=== PATIENT | female | born 2000 | race Caucasian/White ===

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

== ENCOUNTER 2020-03-17 19:50 | Emergency (ER) | payer MEDICAID ==
[~2020-03-17] VITALS: Ht 180.3 cm; Wt 79.5 kg
[~2020-03-17 19:50] MED LIST: NO HOME MEDS
[2020-03-17 20:41] LABS: BASOPHILS % (AUTO) 0.5 % (0-1); EOSINOPHILS # (AUTO) 0.1 X10'3 (0-0.9); HEMATOCRIT 36.9 % (35.0-45.0); HEMOGLOBIN 12.7 g/dl (12.0-16.0); LYMPHOCYTES # (AUTO) 1.6 X10'3 (1.1-4.8); LYMPHOCYTES % (AUTO) 29.3 % (21-51); MEAN CORPUSCULAR HEMOGLOBIN 32.1 PG (27.0-31.0); MEAN CORPUSCULAR HGB CONC 34.3 g/dL (33.0-36.5); MEAN CORPUSCULAR VOLUME 93.4 FL (78-98); MEAN PLATELET VOLUME 8.7 FL (7.4-10.4); MONOCYTES # (AUTO) 0.4 X10'3 (0-0.9); MONOCYTES % (AUTO) 7.3 % (2-12); NEUTROPHILS # (AUTO) 3.5 X10'3 (1.8-7.7); NEUTROPHILS % (AUTO) 61.9 % (42-75); PLATELET COUNT 216 X10'3 (140-440); RED BLOOD COUNT 3.94 X10'6 (4.20-5.60); RED CELL DISTRIBUTION WIDTH 13.1 % (11.5-14.5); WHITE BLOOD COUNT 5.6 X10'3 (4.5-11.0)
[2020-03-17 20:54] LABS: ALANINE AMINOTRANSFERASE 77 U/L (12-78); ALBUMIN 3.6 G/DL (3.4-5.0); ALBUMIN/GLOBULIN RATIO 1.1 (1.1-1.5); ALKALINE PHOSPHATASE 65 IU/L (20-180); ANION GAP 9 (8-16); ASPARTATE AMINO TRANSFERASE 45 U/L (10-37); BILIRUBIN,TOTAL 0.9 MG/DL (0.1-1.0); BLOOD UREA NITROGEN 11 MG/DL (7-18); BUN/CREATININE RATIO 17.2 (6.6-38.0); CHLORIDE 104 MMOL/L (99-107); CREATININE 0.64 MG/DL (0.40-0.90); ETHANOL < 0.010 GM/DL (0.0-0.010); GLUCOSE 92 MG/DL (70-104); POTASSIUM 3.3 MMOL/L (3.5-5.1); SODIUM 138 MMOL/L (135-145); TOTAL CARBON DIOXIDE 24.8 MMOL/L (24-32); eGFR > 90 ML/MIN
[2020-03-17 20:55] LABS: URINE HCG POSITIVE (NEG)
[2020-03-17 21:07] LABS: URINE AMPHETAMINE SCREEN POSITIVE (Neg); URINE BARBITUATE SCREEN NEGATIVE (Neg); URINE BENZODIAZEPINES SCREEN NEGATIVE (Neg); URINE CANNABINOID SCREEN NEGATIVE (Neg); URINE COCAINE SCREEN NEGATIVE (Neg); URINE METHADONE SCREEN NEGATIVE (Neg); URINE OPIATE SCREEN NEGATIVE (Neg); URINE PHENCYCLIDINE SCREEN NEGATIVE (Neg)
--- NOTE | 2020-03-17 22:30 | NUR ---
PT WOUND STITCHED BY DR MERINO. PT GIVEN A SANDWICH. PT IS NOW RESTING COMFORTABLY.
[2020-03-18] MEDS ORDERED: PNV1TABL87 PO (09:36)
[2020-03-18 10:11] VITALS: BP 111/73
== END 2020-03-18 10:13 | disposition home or self-care (01) ==
LOC: ER 19:50
DX: S41.112A Laceration without foreign body of left upper arm, initial encounter (principal); R45.851 Suicidal ideations; I10 Essential (primary) hypertension; J45.909 Unspecified asthma, uncomplicated; F41.9 Anxiety disorder, unspecified; F32.9 Major depressive disorder, single episode, unspecified; F12.90 Cannabis use, unspecified, uncomplicated; F15.90 Other stimulant use, unspecified, uncomplicated; F14.90 Cocaine use, unspecified, uncomplicated; F11.90 Opioid use, unspecified, uncomplicated; Z34.91 Encounter for supervision of normal pregnancy, unspecified, first trimester; Z90.89 Acquired absence of other organs; Z98.890 Other specified postprocedural states; Z72.89 Other problems related to lifestyle; Z88.2 Allergy status to sulfonamides; Z79.899 Other long term (current) drug therapy; W26.0XXA Contact with knife, initial encounter; Y93.89 Activity, other specified; Y92.89 Other specified places as the place of occurrence of the external cause; Y99.8 Other external cause status
CPT/HCPCS: 12001; 36415; 80053; 80305; 80320; 81025; 84702; 85025; 99285

== ENCOUNTER 2021-09-22 04:52 | Emergency (ER) | payer MEDICAID ==
[~2021-09-22] VITALS: Ht 175.3 cm; Wt 113.6 kg
[~2021-09-22 04:52] MED LIST changes: +PNV1TABL87 PO
[2021-09-22] MEDS ORDERED: AMOX500C96 PO (05:53)
[2021-09-22] MEDS ORDERED: amoxicillin 250mg capsule PO ONE (05:55)
--- NOTE | 2021-09-22 06:21 | NUR ---
Report received from COREY Mustafa.
[2021-09-22 08:01] VITALS: BP 122/71
[2021-09-22] MEDS ORDERED: AMOX500C2 PO ×2 (09:29)
[2021-09-22] MEDS ORDERED: AMOX-100 PO (18:17)
[2021-09-22] MEDS ORDERED: PNV1TABL75 PO (18:17)
== END 2021-09-22 08:54 | disposition home or self-care (01) ==
LOC: ER 04:52
DX: R07.89 Other chest pain (principal); Z20.822 Contact with and (suspected) exposure to COVID-19; J18.9 Pneumonia, unspecified organism; F15.90 Other stimulant use, unspecified, uncomplicated; I10 Essential (primary) hypertension; J45.909 Unspecified asthma, uncomplicated; F12.90 Cannabis use, unspecified, uncomplicated; F14.90 Cocaine use, unspecified, uncomplicated; F11.90 Opioid use, unspecified, uncomplicated; Z72.89 Other problems related to lifestyle; Z88.2 Allergy status to sulfonamides; Z79.2 Long term (current) use of antibiotics; Z79.899 Other long term (current) drug therapy
CPT/HCPCS: 71045; 87635; 93005; 99285; C9803

== ENCOUNTER 2021-09-22 15:19 | Emergency (ER) | payer MEDICAID ==
[~2021-09-22] VITALS: Ht 175.3 cm; Wt 115.0 kg
[~2021-09-22 15:19] MED LIST changes: +AMOX500C2 PO; +AMOX500C96 PO
--- NOTE | 2021-09-22 16:12 | NUR ---
Pt brought straight back by [employer]. Pt is on a 5150 for DTS/DTO. Pt stated she was "going to kill a lot of people whom she feels is responsible harming her child." Pt was calm and cooperative on greeting. Pt reports feeling sucidal without a plan. Pt was seen around 0500 this morning and discharged around 1030. Since pt was discharged she reports "smoking clear" (meth.) Pt also states she uses heroin and phetynol. Pt's left AC is red and slightly swollen states "that is wear I shoot up." ESTEPHANIE Gaston. Pt denies A/VH at this time, but reports a history.
[2021-09-22 16:48] LABS: BASOPHILS % (AUTO) 0.3 % (0-1); EOSINOPHILS % (AUTO) 0.3 % (0-6); HEMATOCRIT 40.3 % (35.0-45.0); HEMOGLOBIN 13.4 g/dl (12.0-16.0); LYMPHOCYTES # (AUTO) 1.2 X10'3 (1.1-4.8); LYMPHOCYTES % (AUTO) 13.1 % (21-51); MEAN CORPUSCULAR HEMOGLOBIN 29.8 PG (27.0-31.0); MEAN CORPUSCULAR HGB CONC 33.2 g/dL (33.0-36.5); MEAN CORPUSCULAR VOLUME 89.6 FL (78-98); MEAN PLATELET VOLUME 10.1 FL (7.4-10.4); MONOCYTES # (AUTO) 0.7 X10'3 (0-0.9); NEUTROPHILS # (AUTO) 7.5 X10'3 (1.8-7.7); NEUTROPHILS % (AUTO) 79.3 % (42-75); PLATELET COUNT 222 X10'3 (140-440); WHITE BLOOD COUNT 9.5 X10'3 (4.5-11.0)
[2021-09-22 16:54] LABS: ALANINE AMINOTRANSFERASE 82 U/L (12-78); ALBUMIN 3.7 G/DL (3.4-5.0); ALKALINE PHOSPHATASE 86 IU/L (46-116); ANION GAP 16 (8-16); ASPARTATE AMINO TRANSFERASE 179 U/L (10-37); BILIRUBIN,TOTAL 1.1 MG/DL (0.1-1.0); BLOOD UREA NITROGEN 14 MG/DL (7-18); BUN/CREATININE RATIO 17.3 (6.6-38.0); CHLORIDE 100 MMOL/L (99-107); CREATININE 0.81 MG/DL (0.40-0.90); GLUCOSE 79 MG/DL (70-104); POTASSIUM 3.8 MMOL/L (3.5-5.1); SODIUM 137 MMOL/L (135-145); TOTAL CARBON DIOXIDE 20.7 MMOL/L (24-32); TOTAL PROTEIN 7.5 G/DL (6.4-8.2); eGFR 89 ML/MIN
[2021-09-22 17:01] LABS: ETHANOL < 0.010 GM/DL (0.0-0.010)
[2021-09-22 17:25] LABS: URINE HCG NEGATIVE (NEG)
[2021-09-22 17:28] LABS: CLARITY,URINE SLIGHTLY CLOUDY (Clear); GLUCOSE, URINE NEGATIVE (Neg); KETONES,URINE >=80 mg/dl (Neg); LEUKOCYTE ESTERASE ,URINE NEGATIVE (Neg); NITRITES, URINE NEGATIVE (Neg); OCCULT BLOOD,URINE MODERATE (Neg); PROTEIN,URINE 100 mg/dl (Neg); UROBILINOGEN,URINE 0.2 E.U/dL (0.2-1.0)
[2021-09-22 17:37] LABS: UA COLLECTION TYPE CLN CATCH MIDSTREAM
[2021-09-22 17:38] LABS: COLOR,URINE DARK YELLOW (Yellow)
[2021-09-22 17:40] LABS: URINE AMPHETAMINE SCREEN POSITIVE (Neg); URINE BARBITUATE SCREEN NEGATIVE (Neg); URINE BENZODIAZEPINES SCREEN NEGATIVE (Neg); URINE CANNABINOID SCREEN POSITIVE (Neg); URINE COCAINE SCREEN NEGATIVE (Neg); URINE METHADONE SCREEN NEGATIVE (Neg); URINE OPIATE SCREEN NEGATIVE (Neg); URINE PHENCYCLIDINE SCREEN NEGATIVE (Neg)
[2021-09-22 17:41] LABS: BACTERIA,URINE FEW /HPF (Neg); SQUAMOUS EPITHELIAL CELL,UR MODERATE /LPF (FEW); WBC,URINE 0-4 /HPF (0-4)
[2021-09-22 17:42] LABS: FINE GRANULAR CAST 0-3 /LPF (NEGATIVE); HYALINE CASTS 0-3 /LPF (NEGATIVE); MUCUS STRANDS FEW /LPF (Neg)
--- NOTE | 2021-09-22 17:53 | NUR ---
Patient lying in bed on right side, pt has been calm.
[2021-09-22] MEDS ORDERED: AMOX-100 PO (18:17)
[2021-09-22] MEDS ORDERED: PNV1TABL75 PO (18:17)
--- NOTE | 2021-09-22 18:55 | NUR ---
talked with pt tearful said she was last on meds when pregant in 2017, states doesv not desire to hurt herself or any one else. showed nurse red swollen bruised right arm, said she,I F''' Up and I'm here can I have something for sleep. Talked with Nalini Can and received orders for this pt.
[2021-09-22] MEDS ORDERED: LORazepam 1 MG tablet PO ONE (19:00)
[2021-09-22] MEDS: amox tr/potassium clavulanate 875/125mg TAB PO SCH (19:22)
[2021-09-22] MEDS: OLANZapine 2.5MG tablet PO SCH (19:23)
--- NOTE | 2021-09-22 19:29 | NUR ---
pt twicthing while taking meds pleasant and coperative asked what was wrong did not say during these episodes and asked for a tapon due to being on her period. after confirming she took her pills she began eating remainder of dinner left.
--- NOTE | 2021-09-23 00:07 | NUR ---
noted earlier this evening pt denied feelings of ever wanting to harm herself but looking back in past Er visits noted that she had thoughts of harming herself at age 5 and started to been seen in [facility] at age 11 for suidal idealation.
--- NOTE | 2021-09-23 00:38 | NUR ---
Van tijerina in [facility] - 09/23/21 at 0039 by JUSTICE PATIENT IS SLEEPING QUIETLY ON HER LEFT SIDE. IN VIEW FROM NURSES STATION.
--- NOTE | 2021-09-23 01:55 | NUR ---
repositioned herself and nurse put her head down for comfort. pt remains resting at this time.
--- NOTE | 2021-09-23 02:48 | NUR ---
PATIENT SLEEPS QUIETLY IN A SUPINE POSITION.
--- NOTE | 2021-09-23 07:00 | NUR ---
Patient appears to be sleeping. No restless movements noted, repirations even and unlabored.
[2021-09-23] MEDS: amox tr/potassium clavulanate 875/125mg TAB PO SCH ×2 (08:43→17:58)
[2021-09-23] MEDS: OLANZapine 2.5MG tablet PO SCH (08:43)
--- NOTE | 2021-09-23 10:00 | NUR ---
Pt sleeping comfortably, respirations even and unlabored. Pt denies suicidal and homicidal thoughts at this time. Pt presents fatigued. Pt ate 100% of her breakfast. Will continue to monitor.
--- NOTE | 2021-09-23 12:29 | NUR ---
Met with patient in regards to substance use and to see if patient was interested in treatment options. Patient would like to go to an inpatient rehab. I discussed with patient what options were available to her based on her insurance and she would like to try [facility]. I gave patient an application for that program and my card to call me with any questions.
--- NOTE | 2021-09-23 12:31 | NUR ---
Pt up eating lunch. Pt continues to present fatigued, but cooperative. [facility] is working on inpatient recovery program for patient.
--- NOTE | 2021-09-23 14:44 | NUR ---
Patient is sleeping comfortably, no restless movements. Respirations even and unlabored.
--- NOTE | 2021-09-23 15:16 | NUR ---
Pt ambulated to the bathroom, even steady gait.
--- NOTE | 2021-09-23 16:46 | NUR ---
Pt continues to sleep comfortably, no restless movements. Respirations even and unlabored.
--- NOTE | 2021-09-23 19:34 | NUR ---
PATIENT IS SLEEPING IN A PRONE POSITION IN BED.
--- NOTE | 2021-09-23 20:38 | NUR ---
PATIENT IS SLEEPING QUIETLY IN BED. SHE HAS SELF REPOSITIONED.
--- NOTE | 2021-09-23 21:45 | NUR ---
PATIENT IS SLEEPING QUIETLY. NO DISTRESS.
[2021-09-23] MEDS ORDERED: traZODone 150mg tablet PO ONE (22:30)
[2021-09-23] MEDS ORDERED: traZODone 50mg tablet PO ONE (22:35)
--- NOTE | 2021-09-23 22:48 | NUR ---
Report to nurse Stephie at [facility]. Current 5150 information provided. Stephie will contact her provider for possible admit.
--- NOTE | 2021-09-23 22:50 | NUR ---
PATIENT AWAKENS, AMBULATES TO RESTROOM AND BACK. NO DISTRESS. PATIENT SUPPLIED WITH WATER.
--- NOTE | 2021-09-23 23:37 | NUR ---
PATIENT SLEEPING ON HER RIGH SIDE. NO DISTRESS.
--- NOTE | 2021-09-24 01:12 | NUR ---
PATIENT SLEEPING QUIETLY. IN VIEW FROM NURSES STATION.
--- NOTE | 2021-09-24 02:33 | NUR ---
PATIENT HAS SELF REPOSITIONED IN BED. NO DISTRESS.
--- NOTE | 2021-09-24 02:50 | NUR ---
PATIENT SLEEPS QUIETLY, SUPINE IN BED.
--- NOTE | 2021-09-24 02:51 | NUR ---
PATIENT SLEEPS ON HER LEFT SIDE, NO DISTRESS.
--- NOTE | 2021-09-24 03:53 | NUR ---
PATIENT SLEEPS QUIETLY, SUPINE IN BED.
--- NOTE | 2021-09-24 04:48 | NUR ---
PATIENT SLEEPS QUIETLY ON HER RIGHT SIDE. NO DISTRESS.
--- NOTE | 2021-09-24 05:19 | NUR ---
PATIENT AWOKE, SHE REQUESTED AND WAS GIVEN A TAMPON. PATIENT RETURNED TO BED. NO DISTRESS.
[2021-09-24 06:03] VITALS: BP 121/72
--- NOTE | 2021-09-24 06:40 | NUR ---
Patient sleeping prone. No distress observed. Continue to monitor.
--- NOTE | 2021-09-24 08:15 | NUR ---
Patient eating breakfast. RN examined patient's right heel. Patient has a popped blister which is now a small scab. RN gave patient a bandage for her heel. No distress observed at this time.
[2021-09-24] MEDS: OLANZapine 2.5MG tablet PO SCH (08:58)
[2021-09-24] MEDS: amox tr/potassium clavulanate 875/125mg TAB PO SCH (08:58)
== END 2021-09-24 09:37 ==
LOC: ER 15:19
DX: S40.021A Contusion of right upper arm, initial encounter (principal); R45.850 Homicidal ideations; F22 Delusional disorders; F19.10 Other psychoactive substance abuse, uncomplicated; I10 Essential (primary) hypertension; J45.909 Unspecified asthma, uncomplicated; F41.9 Anxiety disorder, unspecified; F31.9 Bipolar disorder, unspecified; F12.90 Cannabis use, unspecified, uncomplicated; F15.90 Other stimulant use, unspecified, uncomplicated; F11.90 Opioid use, unspecified, uncomplicated; F14.90 Cocaine use, unspecified, uncomplicated; Z72.89 Other problems related to lifestyle; Z88.2 Allergy status to sulfonamides; Z88.1 Allergy status to other antibiotic agents; Z79.2 Long term (current) use of antibiotics; Z79.899 Other long term (current) drug therapy; X83.8XXA Intentional self-harm by other specified means, initial encounter; Y93.89 Activity, other specified; Y92.89 Other specified places as the place of occurrence of the external cause; Y99.8 Other external cause status
CPT/HCPCS: 36415; 80053; 80305; 80320; 81001; 81025; 84443; 85025; 99285

== ENCOUNTER 2023-02-13 13:31 | Emergency (ER) | payer MEDICAID ==
[~2023-02-13] VITALS: Ht 175.3 cm; Wt 100.0 kg
[~2023-02-13 13:31] MED LIST changes: +AMOX-100 PO; -AMOX500C2 PO; -AMOX500C96 PO; -NO HOME MEDS; +PNV1TABL75 PO; -PNV1TABL87 PO
[2023-02-13 14:12] VITALS: BP 112/67
== END 2023-02-13 14:20 | disposition left against medical advice (07) ==
LOC: ER 13:32
DX: R30.9 Painful micturition, unspecified (principal); Z53.21 Procedure and treatment not carried out due to patient leaving prior to being seen by health care provider
CPT/HCPCS: 99281

== ENCOUNTER 2023-05-30 09:14 | Inpatient (IN) | payer MEDICAID ==
[~2023-05-30] VITALS: Ht 175.3 cm; Wt 81.8 kg
[~2023-05-30 09:14] MED LIST changes: +ACET-75 PO; -AMOX-100 PO; +BUPR1FIL20 SL; +ESCI20TA39 PO; +GABA300C PO; -PNV1TABL75 PO; +TRAZ-256 PO; +ZIPR60CA7 PO
[2023-05-30] MEDS ORDERED: buprenorphine/naloxone 8MG-2MG SUBlingual film SL ONE (10:25)
[2023-05-30] MEDS ORDERED: ondansetron 4mg rapidly disintigrating tab PO ONE (10:25)
[2023-05-30] MEDS ORDERED: buprenorphine/naloxone 8MG-2MG SUBlingual film SL SCH (10:25)
--- NOTE | 2023-05-30 10:25 | NUR ---
pt here for rfetanyl withdrawl pt states she has not used fetanyl in 3 days and is trying to stop shde statews nausea vomiting cold sweats feeling weak fever and cough. Pt states she is having suicidal thoughts of wanting to hurt her self with a plan of OD throwing herself off a bridge or slitting her wrist. Pt is homeless
[2023-05-30 11:41] LABS: BASOPHILS # (AUTO) 0.2 X10'3 (0-0.2); BASOPHILS % (AUTO) 1.4 % (0-1); EOSINOPHILS # (AUTO) 0.1 X10'3 (0-0.9); EOSINOPHILS % (AUTO) 0.6 % (0-6); HEMATOCRIT 42.7 % (35.0-45.0); HEMOGLOBIN 14.3 g/dl (12.0-16.0); LYMPHOCYTES # (AUTO) 0.5 X10'3 (1.1-4.8); LYMPHOCYTES % (AUTO) 3.6 % (21-51); MEAN CORPUSCULAR HEMOGLOBIN 29.9 PG (27.0-31.0); MEAN CORPUSCULAR HGB CONC 33.5 g/dL (33.0-36.5); MEAN CORPUSCULAR VOLUME 89.3 FL (78-98); MEAN PLATELET VOLUME 9.8 FL (7.4-10.4); MONOCYTES # (AUTO) 0.8 X10'3 (0-0.9); MONOCYTES % (AUTO) 6.7 % (2-12); NEUTROPHILS # (AUTO) 10.9 X10'3 (1.8-7.7); NEUTROPHILS % (AUTO) 87.7 % (42-75); PLATELET COUNT 191 X10'3 (140-440); RED BLOOD COUNT 4.79 X10'6 (4.20-5.60); RED CELL DISTRIBUTION WIDTH 13.8 % (11.5-14.5); WHITE BLOOD COUNT 12.4 X10'3 (4.5-11.0)
[2023-05-30 11:52] LABS: ALANINE AMINOTRANSFERASE 20 U/L (12-78); ALBUMIN 3.5 G/DL (3.4-5.0); ALBUMIN/GLOBULIN RATIO 0.9 (1.1-1.5); ALKALINE PHOSPHATASE 85 IU/L (46-116); ANION GAP 6 (8-16); ASPARTATE AMINO TRANSFERASE 21 U/L (10-37); BILIRUBIN,TOTAL 1.1 MG/DL (0.1-1.0); BLOOD UREA NITROGEN 4 MG/DL (7-18); BUN/CREATININE RATIO 6.5 (10.0-20.0); CALCIUM 9.5 MG/DL (8.5-10.1); CHLORIDE 98 MMOL/L (99-107); CREATININE 0.62 MG/DL (0.40-0.90); ETHANOL < 10 MG/DL (<10); GLUCOSE 114 MG/DL (70-104); POTASSIUM 3.5 MMOL/L (3.5-5.1); SODIUM 132 MMOL/L (135-145); TOTAL CARBON DIOXIDE 28.4 MMOL/L (24-32); TOTAL PROTEIN 7.6 G/DL (6.4-8.2); eCRCL 147 ML/MIN; eGFR > 90 ML/MIN
[2023-05-30 12:16] LABS: URINE HCG NEGATIVE (NEG)
[2023-05-30 12:25] LABS: URINE AMPHETAMINE SCREEN POSITIVE (Neg); URINE BARBITUATE SCREEN NEGATIVE (Neg); URINE BENZODIAZEPINES SCREEN NEGATIVE (Neg); URINE CANNABINOID SCREEN NEGATIVE (Neg); URINE COCAINE SCREEN NEGATIVE (Neg); URINE METHADONE SCREEN NEGATIVE (Neg); URINE OPIATE SCREEN NEGATIVE (Neg); URINE PHENCYCLIDINE SCREEN NEGATIVE (Neg)
--- NOTE | 2023-05-30 12:32 | NUR ---
Per DANIELITO Rosario Report. Patient wanted to be admitted to the hospital for Fentanyl withdrawal. When she was told they don't admit patients for Fentanyl withdrawal patient stated she was suicidal. Patient laying in bed 23 with her blanket. No distress observed. Continue to monitor.
[2023-05-30] MEDS: buprenorphine/naloxone 8MG-2MG SUBlingual film SL SCH ×2 (13:00→20:39)
--- NOTE | 2023-05-30 13:03 | NUR ---
Patient eating lunch. No distress observed. Continue to monitor.
[2023-05-30 13:19] LABS: BILIRUBIN,URINE NEGATIVE (Neg); CLARITY,URINE CLOUDY (Clear); COLOR,URINE YELLOW (Yellow); GLUCOSE, URINE NEGATIVE (Neg); KETONES,URINE NEGATIVE (Neg); LEUKOCYTE ESTERASE ,URINE NEGATIVE (Neg); NITRITES, URINE NEGATIVE (Neg); OCCULT BLOOD,URINE TRACE-INTACT (Neg); PROTEIN,URINE 30 mg/dl (Neg); UROBILINOGEN,URINE 0.2 E.U/dL (0.2-1.0)
[2023-05-30 13:23] LABS: UA COLLECTION TYPE VOIDED
[2023-05-30 13:24] LABS: SQUAMOUS EPITHELIAL CELL,UR MANY /LPF (FEW); TRANSITIONAL EPI CELLS,URINE MODERATE /HPF
[2023-05-30 13:25] LABS: BACTERIA,URINE 1+ /HPF (Neg); RBC,URINE 0-2 /HPF (0-2); WBC,URINE 0-4 /HPF (0-4)
--- NOTE | 2023-05-30 13:45 | NUR ---
[facility] PACKET FAXED.
--- NOTE | 2023-05-30 14:50 | NUR ---
Patient asked RN to remove her tray. No distress observed. Patient laid back down to sleep. No distress observed. Continue to monitor.
--- NOTE | 2023-05-30 14:51 | NUR ---
RN Holding 1300 Suboxone because she had her first one just before 1100. She did not need an additional one 2 hours later. Patient appears to be comfortable at this time. Continue to monitor.
--- NOTE | 2023-05-30 16:22 | NUR ---
Patient sleeping. No distress observed. Continue to monitor.
--- NOTE | 2023-05-30 17:45 | NUR ---
Patient eating dinner. No distress observed. Continue to monitor.
[2023-05-30] MEDS ORDERED: DOCU-148 PO (18:51)
--- NOTE | 2023-05-30 18:59 | NUR ---
Client to be admitted to [facility] ([facility]) for SI per Dr Lebron. Give PM Buprenorphine prior to transfer.
--- NOTE | 2023-05-30 19:31 | NUR ---
Patient sleeping on her left side. No distress observed. Continue to monitor.
[2023-05-30] MEDS ORDERED: ibuprofen 200mg tablet PO SCH (20:00)
--- NOTE | 2023-05-30 20:43 | NUR ---
RN awoke patient and gave patient her Suboxone. Patient requested something for nausea. Patient calm and in no distress. Continue to monitor.
[2023-05-30] MEDS: ondansetron 4mg rapidly disintigrating tab PO PRN (20:51)
[2023-05-30] MEDS ORDERED: acetaminophen 325mg tablet PO PRN ×2 (21:00→22:10)
--- NOTE | 2023-05-30 21:20 | NUR ---
RN awoke patient and given pain medication for her back. No distress noted. Continue to monitor.
[2023-05-30] MEDS ORDERED: loperamide 2mg capsule PO PRN (22:10)
[2023-05-30] MEDS ORDERED: mag hydrox/Alum hydrox/simeth 30ml oral suspension PO PRN (22:10)
[2023-05-30 22:30] VITALS: BP 132/82; PULSE 86; RESP 18; TEMP 97.9; O2SAT 96
[2023-05-30 23:32] VITALS: RESP 18; O2SAT 96
--- NOTE | 2023-05-31 01:35 | NUR ---
[facility] ADMIT NOTE: LEGAL HOLD: 5150 for DTS PROBLEM: Client presented to ED for Fentanyl detox. 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 While in the ED client stated she wanted to end her life by jumping off a bridge. History of Bipolar DO and depression. INTERVENTIONS: 1:1 assessments. Admin meds. Q 15 min checks for safety. RESPONSE: Client arrived on the unit at 22:14 accompanied by and Patrick Lee. She was cooperative with admission. Client had received Buprenorphine in the ED and reported feeling "drowsy". She fell asleep after admission. COW's assessment was done. Affect and mood are depressed.
[2023-05-31 07:00] VITALS: RESP 18; O2SAT 97
[2023-05-31 07:07] LABS: HEMOGLOBIN A1C 4.9 % (4.5-6.2)
[2023-05-31 07:18] LABS: CHOL/HDL RATIO 2.1 (0.00-4.99); CHOLESTEROL 150 MG/DL (0-200); HDL CHOLESTEROL 73 MG/DL (35-60); LDL CHOLESTEROL 59 MG/DL (50-100); THYROID STIMULATING HORMONE 1.28 ulU/ml (0.34-4.50); TRIGLYCERIDES 36 MG/DL (20-135)
[2023-05-31 08:00] VITALS: BP 96/53; PULSE 90; RESP 18; TEMP 99; O2SAT 97
[2023-05-31] MEDS: nicotine 21mg patch - 24 hr TD SCH (08:00)
[2023-05-31] MEDS: docusate sod 100mg capsule PO SCH (08:12)
[2023-05-31] MEDS: gabapentin 300mg capsule PO SCH ×3 (08:13→20:44)
[2023-05-31] MEDS: buprenorphine/naloxone 8MG-2MG SUBlingual film SL SCH ×3 (08:13→20:44)
[2023-05-31] MEDS: pantoprazole 40mg Tablet.DR PO SCH (08:13)
[2023-05-31] MEDS: NICOTINE POLACRILEX 2 MG LOZENGE BC PRN (17:46)
--- NOTE | 2023-05-31 17:52 | NUR ---
Nursing Note: Kay LEGAL HOLD: 5150 for DTS PROBLEM: Client presented to ED for Fentanyl detox. 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 While in the ED client stated she wanted to end her life by jumping off a bridge. History of Bipolar DO and depression. INTERVENTIONS: Maintained a safe and structured environment, ensured contract for safety, administered meds as prescribed, provided clear and simple instructions, attempted to orient to reality, and maintained Q 15min safety checks. RESPONSE: Received Pt in bed sleeping w/o distress at the beginning of this shift. Pt woke and asked for something sweet, and for meds to help with body pain. Pt was responded well to meeting her basic needs and she took AM meds w/o issue and with good effect. She was cooperative with vitals and was up to community room for breakfast and lunch and ate well along with snacks. Pt slept/ rested most of the day and has become more clear in her speech and grateful toward care from this RN. Pt asked for a nicotine lozenge before dinner, as she refused her Nicotine Patch this AM. Pt has scored low on COWS throughout the day. Plan: Pt. requires a safe and structured environment for further stabilization and continued medication management and adjustment r/t SI and danger to self, and opiate withdrawal.
[2023-05-31 19:00] VITALS: RESP 16; O2SAT 94
[2023-05-31 20:00] VITALS: BP 103/64; PULSE 96; RESP 16; TEMP 97.3; O2SAT 94
[2023-05-31] MEDS: ziprasidone 20mg capsule PO SCH (20:43)
[2023-05-31] MEDS: traZODone 50mg tablet PO SCH (20:43)
[2023-05-31] MEDS: ESCITALOPRAM OXALATE 5 MG TABLET PO SCH (20:44)
--- NOTE | 2023-06-01 01:46 | NUR ---
Nursing Note: Kay PROBLEM: Client presented to ED for Fentanyl detox. 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 While in the ED client stated she wanted to end her life by jumping off a bridge. History of Bipolar DO and depression. INTERVENTIONS: Maintained a safe and structured environment, ensured contract for safety, administered meds as prescribed, provided clear and simple instructions, attempted to orient to reality, and maintained Q 15min safety checks. RESPONSE: Received Pt in community room after eating dinner well. Pt returned to her room and was cooperative with vitals and then took a shower and participated in snack time. She asks for food with frequency. Pt speaking clearly and able to have short conversations and appears more comfortable and less tired. Pt described interactions on streets with criminals and people wanting to take advantage of her and her mother. She watched TV for a short time and laid down in bed. She took HS meds after explanations and fell asleep. Pt woke about midnight but was able to fall back asleep. Plan: Pt. requires a safe and structured environment for further stabilization and continued medication management and adjustment r/t SI and danger to self, and opiate withdrawal.
[2023-06-01 07:55] VITALS: RESP 16; O2SAT 100
[2023-06-01 08:00] VITALS: BP 96/44; PULSE 76; RESP 16; TEMP 97.8; O2SAT 100
[2023-06-01] MEDS: nicotine 21mg patch - 24 hr TD SCH (08:00)
[2023-06-01] MEDS: pantoprazole 40mg Tablet.DR PO SCH (08:05)
[2023-06-01] MEDS: docusate sod 100mg capsule PO SCH (08:05)
[2023-06-01] MEDS: buprenorphine/naloxone 8MG-2MG SUBlingual film SL SCH ×3 (08:05→20:19)
[2023-06-01] MEDS: gabapentin 300mg capsule PO SCH ×3 (08:05→20:19)
[2023-06-01] MEDS: NICOTINE POLACRILEX 2 MG LOZENGE BC PRN (09:01)
[2023-06-01 10:57] LABS: HBSAG SCREEN Negative (Negative); HEP B CORE AB, IGM Negative (Negative); HEP B CORE AB, TOT Negative (Negative)
--- NOTE | 2023-06-01 15:35 | NUR ---
Nursing Progress Note: PROBLEM: Client presented to ED for Fentanyl detox. 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 While in the ED client stated she wanted to end her life by jumping off a bridge. History of Bipolar DO and depression. INTERVENTIONS: Maintained a safe and structured environment, ensured contract for safety, administered meds as prescribed, provided clear and simple instructions, attempted to orient to reality, and maintained Q 15min safety checks. RESPONSE: Upon arrival to shift noted patient sleeping. Noted to be wearing green hospital scrubs and poorly groomed. Unkempt in appearance. Up for breakfast, poor appetite due to nausea and dizziness. COWS assessment performed q6h and scoring mild 8 & 7 today. VSS noted 99.2 temporal, 124/69, 105, 16 RR, 94% with reports Nausea, difficulty urinating including emptying bladder, dysuria, and nocturia. Currently on her menses. Reports feeling of pain all over. Compliant with AM meds including taking Suboxone. Paresh made aware and after discussing it with Dr. Lebron report just to continue PRN Zofran for Nausea since shes already at her max for Suboxone. PRN Nicotine lozenge & Zofran given. Later in morning reports feeling better. Will continue to monitor. Denies SI, HI, AH or VH. Got up a few times today to use the phone and up for meals. She socializes some for meals then back to isolating in room. Will continue to monitor. Plan: Pt. requires a safe and structured environment for further stabilization and continued medication management and adjustment r/t SI and danger to self, and opiate withdrawal.
[2023-06-01 19:00] VITALS: RESP 16; O2SAT 97
[2023-06-01] MEDS: acetaminophen 325mg tablet PO PRN (19:55)
[2023-06-01] MEDS: ziprasidone 20mg capsule PO SCH (20:19)
[2023-06-01] MEDS: ESCITALOPRAM OXALATE 5 MG TABLET PO SCH (20:20)
[2023-06-01] MEDS: traZODone 50mg tablet PO SCH (20:20)
[2023-06-01 20:43] VITALS: BP 106/66; PULSE 92; RESP 16; TEMP 98.3; O2SAT 97
--- NOTE | 2023-06-02 04:48 | NUR ---
Nursing Progress Note: Problem: Client presented to ED for Fentanyl detox. 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 While in the ED client stated she wanted to end her life by jumping off a bridge. History of Bipolar DO and depression. Interventions: Maintained a safe and structured environment, ensured contract for safety, administered meds as prescribed, provided clear and simple instructions, attempted to orient to reality, and maintained Q 15min safety checks. Response: Received pt. in the hallway. I need a smoothie, my stomach is bothering me and I didnt have dinner. Pt was given a yogurt. Pt declined Zofran for upset stomach. Pt is on her menses and asked for supplies. Pts COWS score was 6. Pt was given Tylenol 650mg for generalized pain. Pt denies SI/HI/AVH. Pt is compliant with all medications. Pt was complaining that her anxiety was getting worse and asked for Klonopin, then say no its addicting. Rehabilitation Engineer encouraged pt. to let her HS medications work and then commercial underwriter will reassess. Rehabilitation Engineer did not have to give anything for her anxiety. Pt sitting in day room watching a movie with peers but isnt observed to be socializing. 0220 COWS scores 4. Monitor for withdrawal symptoms and safety. Plan: Pt. requires a safe and structured environment for further stabilization and continued medication management and adjustment r/t SI and danger to self, and opiate withdrawal.
[2023-06-02 07:00] VITALS: RESP 12; O2SAT 97
[2023-06-02] MEDS: ondansetron 4mg rapidly disintigrating tab PO PRN (07:53)
[2023-06-02 08:00] VITALS: BP 114/65; PULSE 94; RESP 12; TEMP 98.9; O2SAT 97
[2023-06-02] MEDS: nicotine 21mg patch - 24 hr TD SCH (08:00)
[2023-06-02] MEDS: pantoprazole 40mg Tablet.DR PO SCH (08:24)
[2023-06-02] MEDS: gabapentin 300mg capsule PO SCH ×3 (08:24→20:19)
[2023-06-02] MEDS: buprenorphine/naloxone 8MG-2MG SUBlingual film SL SCH ×3 (08:24→20:55)
[2023-06-02] MEDS: docusate sod 100mg capsule PO SCH (08:24)
[2023-06-02] MEDS: acetaminophen 325mg tablet PO PRN ×2 (08:25→19:55)
--- NOTE | 2023-06-02 17:47 | NUR ---
Nursing Note: Kay PROBLEM: Client presented to ED for Fentanyl detox. 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 While in the ED client stated she wanted to end her life by jumping off a bridge. History of Bipolar DO and depression. INTERVENTIONS: Maintained a safe and structured environment, ensured contract for safety, administered meds as prescribed, provided clear and simple instructions, attempted to orient to reality, and maintained Q 15min safety checks. RESPONSE: Received Pt in bed sleeping w/o distress at the beginning of this shift. Pt woke for vitals and was cooperative. Pt took AM meds w/o issue and was excited about her mother visiting today. Pt c/o nausea and was given Zofran PRN with good effect. Pt also c/o davis and was given Tylenol PRN with good effect. Pts mother did not visit and she was disappointed, yet she made several phone calls that sounded positive and encouraging to her. Picture taken of right hand infected area and Dr Curran notified. He did not want a wound consult but would order an antibiotic. Pt refused her afternoon Suboxone, stating she felt sloshy, and wanted to take the night dose and skip afternoon. She scored a 4 and 3 respectfully on COWS assessments today. Plan: Pt. requires a safe and structured environment for further stabilization and continued medication management and adjustment r/t SI and danger to self, and opiate withdrawal.
[2023-06-02 19:00] VITALS: RESP 16; O2SAT 98
[2023-06-02 20:00] VITALS: BP 114/74; PULSE 91; RESP 16; TEMP 98.6; O2SAT 98
[2023-06-02] MEDS: prazosin 1mg capsule PO SCH (20:19)
[2023-06-02] MEDS: traZODone 50mg tablet PO SCH (20:20)
[2023-06-02] MEDS: ESCITALOPRAM OXALATE 5 MG TABLET PO SCH (20:20)
[2023-06-02] MEDS: magnesium hydroxide 30ml (MOM) UD suspension PO PRN (20:29)
[2023-06-02] MEDS ORDERED: prazosin 1mg capsule PO ONE (22:40)
[2023-06-02] MEDS ORDERED: traZODone 50mg tablet PO ONE (22:40)
[2023-06-03] MEDS ORDERED: OLANZapine 2.5MG tablet PO ONE (00:20)
[2023-06-03] MEDS ORDERED: traZODone 50mg tablet PO ONE (00:20)
--- NOTE | 2023-06-03 05:12 | NUR ---
Nursing Progress Note: Problem: Client presented to ED for Fentanyl detox. 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 While in the ED client stated she wanted to end her life by jumping off a bridge. History of Bipolar DO and depression. Interventions: Maintained a safe and structured environment, ensured contract for safety, administered meds as prescribed, provided clear and simple instructions, attempted to orient to reality, and maintained Q 15min safety checks. Response: Received Pt in her room. Pt is asking to shower, change of clothes given. Personal clothes washed. Pts c/o stomach pain and was given Tylenol 650mg for pain level of 5/10. Pt stated she hasnt had a BM since admission. MOM 30ml given. Pt would like to start on Miralax tomorrow. Pt is compliant with HS medications except refused her Suboxone dose. Pt told telegraphic typewriter mechanic it was messing with her. Pt denies SI/HI/AH/VH. 2000 COWS done and pt scored 5. Pt woke up around 2230, I had a bad nightmare, there were people all screaming my name and asking for help. I couldnt help them because I didnt have my phone. Dr. Stephenson was notified and ordered Prazosin 1mg with Trazodone 100mg. Pt went back to sleep. Around 0010 pt woke again from the same nightmare. Zyprexa 10mg along with another 100mg of Trazodone was ordered. 0200 COWS not performed due to pt being asleep after receiving multiple PRNs for sleep and nightmares. Will continue to monitor for safety. Plan: Pt. requires a safe and structured environment for further stabilization and continued medication management and adjustment r/t SI and danger to self, and opiate withdrawal.
[2023-06-03 07:00] VITALS: RESP 16; O2SAT 98
[2023-06-03 08:00] VITALS: BP 97/56; PULSE 66; RESP 16; TEMP 97.7; O2SAT 98
[2023-06-03] MEDS: nicotine 21mg patch - 24 hr TD SCH (08:00)
[2023-06-03] MEDS: gabapentin 300mg capsule PO SCH ×3 (08:05→20:32)
[2023-06-03] MEDS: docusate sod 100mg capsule PO SCH (08:05)
[2023-06-03] MEDS: pantoprazole 40mg Tablet.DR PO SCH (08:05)
[2023-06-03] MEDS: buprenorphine/naloxone 8MG-2MG SUBlingual film SL SCH ×4 (08:05→21:00)
--- NOTE | 2023-06-03 08:59 | NUR ---
Initial: Pt admit DX meth/fentanyl abuse, MDD, SI, and PTSD per EMR. PO ~76% avg regular diet meeting estimated needs. LBM 05/31 receiving routine colace and PRN MoM 06/02 per EMR. No nutrition interventions at this time. Will continue to follow. Rec: 1. continue regular diet 2. bowel care per rx 3. weekly wt Addendum: 06/03/23 at [address] Amended: Links added.
[2023-06-03 11:12] LABS: BASOPHILS # (AUTO) 0.1 X10'3 (0-0.2); BASOPHILS % (AUTO) 1.2 % (0-1); EOSINOPHILS # (AUTO) 0.2 X10'3 (0-0.9); EOSINOPHILS % (AUTO) 3.6 % (0-6); HEMATOCRIT 33.5 % (35.0-45.0); HEMOGLOBIN 11.1 g/dl (12.0-16.0); LYMPHOCYTES # (AUTO) 1.3 X10'3 (1.1-4.8); LYMPHOCYTES % (AUTO) 22.9 % (21-51); MEAN CORPUSCULAR HEMOGLOBIN 30.3 PG (27.0-31.0); MEAN CORPUSCULAR HGB CONC 33.2 g/dL (33.0-36.5); MEAN CORPUSCULAR VOLUME 91.1 FL (78-98); MEAN PLATELET VOLUME 9.6 FL (7.4-10.4); MONOCYTES # (AUTO) 0.5 X10'3 (0-0.9); MONOCYTES % (AUTO) 8.7 % (2-12); NEUTROPHILS # (AUTO) 3.7 X10'3 (1.8-7.7); NEUTROPHILS % (AUTO) 63.6 % (42-75); PLATELET COUNT 224 X10'3 (140-440); RED BLOOD COUNT 3.68 X10'6 (4.20-5.60); RED CELL DISTRIBUTION WIDTH 13.7 % (11.5-14.5); WHITE BLOOD COUNT 5.9 X10'3 (4.5-11.0)
[2023-06-03 11:21] LABS: ALBUMIN 2.3 G/DL (3.4-5.0); ANION GAP 2 (8-16); BLOOD UREA NITROGEN 7 MG/DL (7-18); BUN/CREATININE RATIO 12.5 (10.0-20.0); CALCIUM 9.1 MG/DL (8.5-10.1); CHLORIDE 102 MMOL/L (99-107); CREATININE 0.56 MG/DL (0.40-0.90); GLUCOSE 91 MG/DL (70-104); POTASSIUM 4.5 MMOL/L (3.5-5.1); SODIUM 139 MMOL/L (135-145); TOTAL CARBON DIOXIDE 34.6 MMOL/L (24-32); eCRCL 163 ML/MIN; eGFR > 90 ML/MIN
[2023-06-03 12:23] LABS: HIV ANTIBODY 1&2 RAPID NON-REACTIVE (Neg)
[2023-06-03] MEDS: ondansetron 4mg rapidly disintigrating tab PO PRN (13:05)
--- NOTE | 2023-06-03 15:11 | NUR ---
Left message with Kay's PO, Orly Cedillo (ph# [phone]), requesting a call back. Would like to confirm if she has been referred to [facility] and if there are any other options. Kay gave verbal permission to call her PO. MICHELLE Peck
--- NOTE | 2023-06-03 17:17 | NUR ---
Nursing Progress Note: PROBLEM: Client presented to ED for Fentanyl detox. 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 While in the ED client stated she wanted to end her life by jumping off a bridge. History of Bipolar DO and depression. INTERVENTIONS: Maintained a safe and structured environment, ensured contract for safety, administered meds as prescribed, provided clear and simple instructions, attempted to orient to reality, and maintained Q 15min safety checks. RESPONSE: Patient observed sleeping at shift change. She allowed vitals check then slept until breakfast. Patient accepted AM meds and answered assessment questions, before going back to bed. COWS done with score of 2. She got up for a visit from her mom, then went back to bed after grabbing a morning snack. Order obtained for Miralax per her request to start this evening. During lunch she c/o nausea and Zofran administered with good relief. Patient went back to bed after lunch. Patient refused her 1300 Suboxone Plan: Pt. requires a safe and structured environment for further stabilization and continued medication management and adjustment r/t SI and danger to self, and opiate withdrawal.
[2023-06-03 19:00] VITALS: BP 93/52; PULSE 74; RESP 12; TEMP 97.5; O2SAT 98
[2023-06-03] MEDS: polyethylene glycol 3350 17gm powd pack PO SCH ×2 (20:31→20:40)
[2023-06-03] MEDS: prazosin 1mg capsule PO SCH (20:32)
[2023-06-03] MEDS: ESCITALOPRAM OXALATE 5 MG TABLET PO SCH (20:32)
--- NOTE | 2023-06-04 03:44 | NUR ---
RN PROGRESS NOTE: LEGAL HOLD: [facility] for DTS PROBLEM: Client presented to ED for Fentanyl detox. 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 While in the ED client stated she wanted to end her life by jumping off a bridge. History of Bipolar DO and depression. INTERVENTIONS: Maintained a safe and structured environment, ensured contract for safety, administered meds as prescribed, provided clear and simple instructions, attempted to orient to reality, and maintained Q 15min safety checks. RESPONSE: Client was asleep at COS. Awake for PM meds. She did not make eye contact and was guarded. Client reported she felt "tired". Requested a snack and was given yogurt and jello. Client did not engage in conversation. Depressed affect and mood. Took PM meds. Her COW'S scores have been low. PLAN: Pt. requires a safe and structured environment for further stabilization and continued medication management and adjustment r/t SI and danger to self, and opiate withdrawal. Addendum: 06/04/23 at 0421 by Maty Markham RN Client refused Suboxone.
[2023-06-04 07:20] VITALS: RESP 16; O2SAT 98
[2023-06-04] MEDS: buprenorphine/naloxone 8MG-2MG SUBlingual film SL SCH ×4 (07:33→21:00)
[2023-06-04] MEDS: docusate sod 100mg capsule PO SCH (07:33)
[2023-06-04] MEDS: gabapentin 300mg capsule PO SCH ×2 (07:33→13:29)
[2023-06-04] MEDS: pantoprazole 40mg Tablet.DR PO SCH (07:33)
[2023-06-04] MEDS: nicotine 21mg patch - 24 hr TD SCH ×2 (07:34→13:28)
[2023-06-04 08:00] VITALS: BP 96/52; PULSE 74; RESP 12; TEMP 95.9; O2SAT 92
[2023-06-04] MEDS ORDERED: magnesium citrate 296ml oral solution PO ONE (16:00)
[2023-06-04 16:54] LABS: HBSAG SCREEN Negative (Negative); HEP A AB, IGM Negative (Negative); HEP B CORE AB, IGM Negative (Negative)
--- NOTE | 2023-06-04 18:03 | NUR ---
Nursing Progress Note: PROBLEM: Client presented to ED for Fentanyl detox. 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 While in the ED client stated she wanted to end her life by jumping off a bridge. History of Bipolar DO and depression. INTERVENTIONS: Maintained a safe and structured environment, ensured contract for safety, administered meds as prescribed, provided clear and simple instructions, attempted to orient to reality, and maintained Q 15min safety checks. RESPONSE: Patient awakened for vitals and stayed up for breakfast. She was compliant with medications (except for Suboxone) then stayed up in the dining room. She played a game of cards with some students, then watched a little TV. She reported to this automatic typewriter inspector that she felt icky and sweaty. She had no clean clothes to wear, so she picked out an outfit from donated clothing and took a shower. I feel a lot better. Patient then napped until lunch. Received order for Mag Citrate and administered. Waiting for results. Plan: Pt. requires a safe and structured environment for further stabilization and continued medication management and adjustment r/t SI and danger to self, and opiate withdrawal.
[2023-06-04 19:00] VITALS: RESP 14; O2SAT 97
[2023-06-04 20:00] VITALS: BP 100/64; PULSE 76; RESP 14; TEMP 96.8; O2SAT 97
[2023-06-04] MEDS ORDERED: prazosin 1mg capsule PO SCH (21:00)
[2023-06-04] MEDS: gabapentin 100mg capsule PO SCH (21:23)
[2023-06-04] MEDS: polyethylene glycol 3350 17gm powd pack PO SCH (21:23)
--- NOTE | 2023-06-05 01:14 | NUR ---
Nursing Progress Note: PROBLEM: Client presented to ED for Fentanyl detox. 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 While in the ED client stated she wanted to end her life by jumping off a bridge. History of Bipolar DO and depression. INTERVENTIONS: Maintained a safe and structured environment, ensured contract for safety, administered meds as prescribed, provided clear and simple instructions, attempted to orient to reality, and maintained Q 15min safety checks. RESPONSE: Received pt. sleeping at change of shift. When awaken, pt. is calm and cooperative. When asked how she is doing, pt. states "I could be doing better". Pt. took night medications but refused her Suboxone. Pt. denies SI/HI/AH/VH. Pt. remained in room and slept. Nicotine patch removed. Pt. is observed and appears to be sleeping without difficulty . Plan: Pt. requires a safe and structured environment for further stabilization and continued medication management and adjustment r/t SI and danger to self, and opiate withdrawal. Addendum: 06/05/23 at 0516 by Antonella Woodruff LVN pt. awake at 0230 requesting something to help with constipation. PRN MOM provided along with prune juice. Pt. had a couple of snacks. She reported having some difficulty falling back to sleep. Pt. given hot cocoa and returned to bed. Pt. currently sleeping .
[2023-06-05] MEDS: magnesium hydroxide 30ml (MOM) UD suspension PO PRN (02:34)
[2023-06-05] MEDS: gabapentin 100mg capsule PO SCH (07:22)
[2023-06-05] MEDS: pantoprazole 40mg Tablet.DR PO SCH (07:22)
[2023-06-05] MEDS: docusate sod 100mg capsule PO SCH (07:22)
[2023-06-05 07:45] VITALS: RESP 16; O2SAT 98
[2023-06-05 08:00] VITALS: BP 91/49; PULSE 67; RESP 12; TEMP 97.8; O2SAT 99
[2023-06-05] MEDS: buprenorphine/naloxone 8MG-2MG SUBlingual film SL SCH (08:00)
[2023-06-05] MEDS ORDERED: ESCITALOPRAM OXALATE 5 MG TABLET PO SCH (08:00)
[2023-06-05] MEDS: nicotine 21mg patch - 24 hr TD SCH (08:00)
[2023-06-05] MEDS ORDERED: PHENYLEPH/MIN OIL/PETROLAT hemorrhoid oint 57GM tube RC PRN (08:40)
[2023-06-05] MEDS ORDERED: glycerin ADULT rectal suppository RC ONE (08:40)
[2023-06-05] MEDS: ondansetron 4mg rapidly disintigrating tab PO PRN (09:35)
[2023-06-05] MEDS ORDERED: ESCI20TA39 PO (09:46)
[2023-06-05] MEDS ORDERED: GABA300C PO (09:46)
[2023-06-05] MEDS ORDERED: PRAZ1CAP5 PO (09:46)
[2023-06-05] MEDS ORDERED: DOCU100C40 PO (09:46)
[2023-06-05] MEDS ORDERED: PANT40TA54 PO (09:46)
[2023-06-05] MEDS ORDERED: NICO-687 TD (09:46)
[2023-06-05] MEDS ORDERED: NALO4SPR BOTHNARES (09:51)
[2023-06-05] MEDS ORDERED: BUPR1FIL5 SL (09:51)
[2023-06-05] MEDS ORDERED: ESCI5TAB17 PO (10:05)
[2023-06-06] MEDS ORDERED: docusate sod 100mg capsule PO SCH (08:00)
[2023-06-07 20:22] LABS: HEPATITIS C VIRUS ANTIBODY Reactive (Non Reactive)
== END 2023-06-05 11:10 | disposition home or self-care (01) | DRG 751 ==
LOC: ER 09:14 → ED HOLD 19:00 → ADULT MH 21:46
PROVIDERS: ADMIT Psychiatry & Neurology Psychiatry; ATTEND Psychiatry & Neurology Psychiatry
DX: F33.2 Major depressive disorder, recurrent severe without psychotic features (principal); E87.1 Hypo-osmolality and hyponatremia; R45.851 Suicidal ideations; I10 Essential (primary) hypertension; Z20.822 Contact with and (suspected) exposure to COVID-19; F17.210 Nicotine dependence, cigarettes, uncomplicated; R35.89 Other polyuria; F43.10 Post-traumatic stress disorder, unspecified; J45.909 Unspecified asthma, uncomplicated; F15.13 Other stimulant abuse with withdrawal; F11.23 Opioid dependence with withdrawal; T40.411A Poisoning by fentanyl or fentanyl analogs, accidental (unintentional), initial encounter; T43.651A Poisoning by methamphetamines accidental (unintentional), initial encounter; Y92.89 Other specified places as the place of occurrence of the external cause; Z59.00 Homelessness unspecified; Z88.2 Allergy status to sulfonamides; Z91.51 Personal history of suicidal behavior
CPT/HCPCS: 36415; 73130; 80048; 80053; 80061; 80074; 80305; 80320; 81001; 81025; 83036; 84145; 84443; 85025; 86592; 86703; 86704; 86705; 86803; 87081; 87340; 87522; 87811; 99285

== ENCOUNTER 2023-07-02 10:23 | Emergency (ER) | payer MEDICAID ==
[~2023-07-02] VITALS: Ht 175.3 cm; Wt 80.6 kg
[~2023-07-02 10:23] MED LIST changes: -ACET-75 PO; -BUPR1FIL20 SL; +BUPR1FIL5 SL; +DOCU100C40 PO; +ESCI5TAB17 PO; +NALO4SPR BOTHNARES; +NICO-687 TD; +PANT40TA54 PO; +PRAZ1CAP5 PO; -TRAZ-256 PO; -ZIPR60CA7 PO
--- NOTE | 2023-07-02 10:57 | NUR ---
PT REPORTS LAST FENTANYL USE 3 DAYS AGO, PT STATES SHE USUALLY SMOKES IT BUT SOMETIMES SHOOT IT. PT REPORTS "NAUSEA VOMITING AND HOT AND COLD SWEATS."
--- NOTE | 2023-07-02 10:58 | NUR ---
Met with patient in regards to substance use and to see if patient was interested in resources for treatment options. Patient states that she is currently in withdrawal from Fentanyl and would like to start Suboxone. I spoke with Luisa and she will start patient on Suboxone. I gave the patient a list of resources, a card for [facility] and my card to call me with any questions.
--- NOTE | 2023-07-02 10:58 | NUR ---
PT THEN STATED SHES SUICIDAL AND WANTS TO STAY.
[2023-07-02 12:14] LABS: URINE HCG NEGATIVE (NEG)
[2023-07-02 12:27] LABS: BILIRUBIN,URINE NEGATIVE (Neg); CLARITY,URINE CLEAR (Clear); COLOR,URINE YELLOW (Yellow); GLUCOSE, URINE NEGATIVE (Neg); KETONES,URINE NEGATIVE (Neg); LEUKOCYTE ESTERASE ,URINE NEGATIVE (Neg); NITRITES, URINE NEGATIVE (Neg); OCCULT BLOOD,URINE TRACE-INTACT (Neg); PH,URINE 8.5 (4.8-8.0); PROTEIN,URINE NEGATIVE (Neg); UROBILINOGEN,URINE 0.2 E.U/dL (0.2-1.0)
--- NOTE | 2023-07-02 12:28 | NUR ---
PT GIVEN LUNCH FROM [facility].
[2023-07-02 12:34] LABS: BASOPHILS % (AUTO) 0.4 % (0-1); EOSINOPHILS # (AUTO) 0.1 X10'3 (0-0.9); EOSINOPHILS % (AUTO) 1.1 % (0-6); HEMATOCRIT 40.1 % (35.0-45.0); LYMPHOCYTES # (AUTO) 1.1 X10'3 (1.1-4.8); LYMPHOCYTES % (AUTO) 16.2 % (21-51); MEAN CORPUSCULAR HEMOGLOBIN 29.5 PG (27.0-31.0); MEAN CORPUSCULAR HGB CONC 32.5 g/dL (33.0-36.5); MEAN CORPUSCULAR VOLUME 90.8 FL (78-98); MEAN PLATELET VOLUME 9.8 FL (7.4-10.4); MONOCYTES # (AUTO) 0.6 X10'3 (0-0.9); MONOCYTES % (AUTO) 8.1 % (2-12); NEUTROPHILS # (AUTO) 5.2 X10'3 (1.8-7.7); NEUTROPHILS % (AUTO) 74.2 % (42-75); PLATELET COUNT 198 X10'3 (140-440); RED BLOOD COUNT 4.41 X10'6 (4.20-5.60); RED CELL DISTRIBUTION WIDTH 14.4 % (11.5-14.5)
[2023-07-02 12:35] LABS: URINE AMPHETAMINE SCREEN NEGATIVE (Neg); URINE BARBITUATE SCREEN NEGATIVE (Neg); URINE BENZODIAZEPINES SCREEN NEGATIVE (Neg); URINE CANNABINOID SCREEN NEGATIVE (Neg); URINE COCAINE SCREEN NEGATIVE (Neg); URINE METHADONE SCREEN NEGATIVE (Neg); URINE OPIATE SCREEN NEGATIVE (Neg); URINE PHENCYCLIDINE SCREEN NEGATIVE (Neg)
[2023-07-02 12:38] LABS: UA COLLECTION TYPE CLN CATCH MIDSTREAM
[2023-07-02 12:41] LABS: BACTERIA,URINE FEW /HPF (Neg); MUCUS STRANDS FEW /LPF (Neg); SQUAMOUS EPITHELIAL CELL,UR FEW /LPF (FEW); WBC,URINE 0-4 /HPF (0-4)
[2023-07-02 13:00] LABS: ALANINE AMINOTRANSFERASE 30 U/L (12-78); ALBUMIN 2.9 G/DL (3.4-5.0); ALBUMIN/GLOBULIN RATIO 0.7 (1.1-1.5); ALKALINE PHOSPHATASE 92 IU/L (46-116); ANION GAP 7 (8-16); ASPARTATE AMINO TRANSFERASE 17 U/L (10-37); BILIRUBIN,TOTAL 0.2 MG/DL (0.1-1.0); BLOOD UREA NITROGEN 6 MG/DL (7-18); BUN/CREATININE RATIO 11.8 (10.0-20.0); CALCIUM 9.3 MG/DL (8.5-10.1); CHLORIDE 99 MMOL/L (99-107); CREATININE 0.51 MG/DL (0.40-0.90); GLUCOSE 87 MG/DL (70-104); POTASSIUM 3.6 MMOL/L (3.5-5.1); SODIUM 134 MMOL/L (135-145); TOTAL CARBON DIOXIDE 28.5 MMOL/L (24-32); TOTAL PROTEIN 6.8 G/DL (6.4-8.2); eCRCL 179 ML/MIN; eGFR > 90 ML/MIN
[2023-07-02 13:05] LABS: ETHANOL < 10 MG/DL (<10); THYROID STIMULATING HORMONE 0.48 ulU/ml (0.34-4.50)
--- NOTE | 2023-07-02 13:20 | NUR ---
Received pt from ER. Pt is lying in bed in prone position. Respirations even and unlabored. No s/s of distress.
--- NOTE | 2023-07-02 14:11 | NUR ---
Pt up to bathroom. Requesting sweet snacks and telephone to call her mother. Given snacks and phone.
[2023-07-02] MEDS ORDERED: diphenhydrAMINE 25mg capsule PO ONE (14:25)
[2023-07-02] MEDS ORDERED: NO HOME MEDS (14:58)
--- NOTE | 2023-07-02 15:58 | NUR ---
Pt is asleep in bed lying on left side. Respirations even and unlabored. No s/s of distress.
--- NOTE | 2023-07-02 17:10 | NUR ---
Pt discharged to the mission. Provided taxi.
[2023-07-02 17:12] VITALS: BP 127/83; PULSE 82; RESP 16; TEMP 97.9; O2SAT 100
== END 2023-07-02 17:16 | disposition home or self-care (01) ==
LOC: ER 10:24
DX: R45.851 Suicidal ideations (principal); Z20.822 Contact with and (suspected) exposure to COVID-19; F11.90 Opioid use, unspecified, uncomplicated; I10 Essential (primary) hypertension; J45.909 Unspecified asthma, uncomplicated; F41.9 Anxiety disorder, unspecified; F31.9 Bipolar disorder, unspecified; F12.90 Cannabis use, unspecified, uncomplicated; F15.90 Other stimulant use, unspecified, uncomplicated; Z72.89 Other problems related to lifestyle; Z98.890 Other specified postprocedural states; Z90.49 Acquired absence of other specified parts of digestive tract; Z88.2 Allergy status to sulfonamides; Z79.899 Other long term (current) drug therapy
CPT/HCPCS: 36415; 80053; 80305; 80320; 81001; 81025; 84443; 85025; 87811; 99285; Q0163